=== PATIENT | female | born 1965 | race Caucasian/White ===

== ENCOUNTER 2019-03-08 21:30 | Emergency (ER) | payer OTHER ==
[~2019-03-08] VITALS: Ht 157.5 cm; Wt 63.6 kg
[2019-03-08 21:34] VITALS: Ht 157.5 cm; Wt 63.6 kg
[2019-03-08] MEDS ORDERED: SOD CHLORIDE 0.9% 640 ML IV ONE (23:30)
[2019-03-09] MEDS ORDERED: INSULIN REGULAR, HUMAN 100 UNIT/1 ML 3ML VIAL SC ONE (01:00)
--- NOTE | 2019-03-09 02:43 | ERD ---
ER Documentation Chief Complaint Chief Complaint states high blood sugar at home, c/o dizziness HPI This is a 53-year-old female states that she is been feeling dizzy noticed that her blood sugars were severely elevated at home. Fevers chills nausea vomiting. Denies any focal neurologic complaints. Denies any other current issues. ROS All systems reviewed and are negative except as per history of present illness. Medications Home Meds Unable to Obtain Active Prescriptions or Reported Meds Allergies Allergies: Coded Allergies: No Known Allergy (Unverified , 10/22/14) PMhx/Soc History of Surgery: Yes (Removal of 1 ovary) Anesthesia Reaction: No Hx Neurological Disorder: No Hx Respiratory Disorders: No Hx Cardiac Disorders: Yes (HTN) Hx Psychiatric Problems: No Hx Miscellaneous Medical Probl: Yes (Cancer of right kidney, mass in the neck, gall stones) Hx Alcohol Use: No Hx Substance Use: No Hx Tobacco Use: No Smoking Status: Never smoker Physical Exam Vitals Vital Signs Date Temp Pulse Resp B/P (MAP) Pulse Ox O2 O2 Flow FiO2 Time Delivery Rate 03/08/19 90 17 172/79 98 Room Air 23:11 (110) 03/08/19 97.5 100 18 187/88 100 21:34 (121) Physical Exam Const: No acute distress Head: Atraumatic Eyes: Normal Conjunctiva ENT: Normal External Ears, Nose and Mouth. Neck: Full range of motion. No meningismus. Resp: Clear to auscultation bilaterally Cardio: Regular rate and rhythm, no murmurs Abd: Soft, non tender, non distended. Normal bowel sounds Skin: No petechiae or rashes Back: No midline or flank tenderness Ext: No cyanosis, or edema Neur: Awake and alert Psych: Normal Mood and Affect Result Diagram: 03/08/19231803/08/192318 Results 24 hrs Laboratory Tests Test 03/08/19 21:37 03/08/19 23:12 03/08/19 23:19 03/08/19 23:26 Bedside Glucose 451 mg/dL 391 mg/dL Blood Gas Blood venous Specimen Source Arterial Blood 03/09/2019 12:18 Date Drawn :42 AM Arterial Blood VENOUS LINE Gas Puncture Site Emanuel Test N/A Venous Blood pH 7.374 Venous Blood 48.4 mmHG pCO2 (Temp Corrected) Venous Blood pO2 30.2 mmHG (Temp Corrected) Venous Blood 27.6 mmol/L HCO3 Venous Blood 57.3 mmHG Oxygen Saturation Venous Blood 1.6 mmol/L Base Excess Venous Blood 15.9 g/dl Total Hemoglobin Venous Blood 57.0 % Oxyhemoglobin Venous Blood 0.1 % Methemoglobin Carboxyhemoglobi 0.4 % n Blood Gas 37.0 C Temperature Blood Gas Actual 21 Respiration Rate Blood Gas ROOM AIR Modality FiO2 21.0 % Blood Gas KB Notified Whom Blood Gas 03/09/2019 12:23 Notified Time :38 AM White Blood 11.4 10^3/ul Count Red Blood Count 4.77 10^6/ul Hemoglobin 13.3 g/dl Hematocrit 39.4 % Mean Corpuscular 82.6 fl Volume Mean Corpuscular 27.9 pg Hemoglobin Mean Corpuscular 33.8 g/dl Hemoglobin Alix nt Red Cell 12.5 % Distribution Width Platelet Count 310 10^3/UL Mean Platelet 10.9 fl Volume Immature 0.300 % Granulocytes % Neutrophils % 65.0 % Lymphocytes % 24.1 % Monocytes % 8.0 % Eosinophils % 1.9 % Basophils % 0.7 % Nucleated Red 0.0 /100WBC Blood Cells % Immature 0.040 10^3/ul Granulocytes # Neutrophils # 7.4 10^3/ul Lymphocytes # 2.8 10^3/ul Monocytes # 0.9 10^3/ul Eosinophils # 0.2 10^3/ul Basophils # 0.1 10^3/ul Nucleated Red 0.0 10^3/ul Blood Cells # Urine Color YELLOW Urine Clarity SLIGHTLY CLOUDY Urine pH 6.0 Urine Specific 1.030 Truman Urine Ketones NEGATIVE mg/dL Urine Nitrite NEGATIVE mg/dL Urine Bilirubin NEGATIVE mg/dL Urine NEGATIVE mg/dL Urobilinogen Urine Leukocyte TRACE Mari/ul Esterase Urine 1 /HPF Microscopic RBC Urine 12 /HPF Microscopic WBC Urine Bacteria FEW /HPF Urine Mucus FEW /HPF Urine Hemoglobin NEGATIVE mg/dL Urine Glucose 3+ mg/dL Urine Total NEGATIVE mg/dl Protein Sodium Level 137 mmol/L Potassium Level 4.4 mmol/L Chloride Level 99 mmol/L Carbon Dioxide 28 mmol/L Level Anion Gap 10 Blood Urea 16 mg/dl Nitrogen Creatinine 0.45 mg/dl Est Glomerular > 60 mL/min Filtrat Rate mL/min Glucose Level 407 mg/dl Calcium Level 11.2 mg/dl Phosphorus Level 3.9 mg/dl Magnesium Level 1.8 mg/dl Total Bilirubin 1.0 mg/dl Direct Bilirubin 0.00 mg/dl Indirect 1.0 mg/dl Bilirubin Aspartate Amino 22 IU/L Transf (AST/SGOT ) Alanine 16 IU/L Aminotransferase (ALT/SGPT) Alkaline 170 IU/L Phosphatase Troponin I < 0.012 ng/ml Total Protein 8.3 g/dl Albumin 4.4 g/dl Globulin 3.90 g/dl Albumin/Globulin 1.12 Ratio Test 03/09/19 01:06 03/09/19 02:30 Bedside Glucose 336 mg/dL 277 mg/dL Current Medications Medications Dose Sig/Radha Start Time Status Last (Trade) Ordered Route PRN Stop Time Admin Dose Reason Admin Sodium 640 ml @ ONCE ONCE 03/08/19 DC 03/08/19 Chloride 640 mls/hr IV 23:30 23:34 03/09/19 00:29 Insulin 8 unit ONCE ONCE 03/09/19 DC 03/09/19 Human SC 01:00 01:09 Regular 03/09/19 01:01 (Humulin R) Procedures/MDM Emergency department course: Patient started on diabetic ketoacidosis screen. Found to not be in DKA. Given fluid bolus and subcutaneous insulin. Sugars normalized here in the department. Stable for trial of outpatient management. Advised follow-up with PCP for medication regimen change EKG: Rate/Rhythm: Normal Sinus Rhythm QRS, ST, T-waves: No changes consistent w/ acute ischemia Impression: No evidence of ischemia or arrhythmia Chest X-ray 1V Interpreted by me: Soft Tissue: No acute abnormalities Bones: No acute abnormalities Mediastinum/Cardiac Silhouette/Lungs: No acute abnormalities Departure Diagnosis: Primary Impression: Hyperglycemia Condition: Stable Patient Instructions: Hyperglycemia (High Blood Sugar) NITHYA SIFUENTES March 09, 2019 02:43
[2019-03-09 03:15] VITALS: BP 147/72; PULSE 96; RESP 16
== END 2019-03-09 03:15 | disposition home or self-care (01) ==
LOC: E/R 21:30
DX: R73.9 Hyperglycemia, unspecified (principal); I10 Essential (primary) hypertension; Z85.528 Personal history of other malignant neoplasm of kidney
CPT/HCPCS: 36415; 71045; 80053; 81001; 82803; 82962; 83735; 84100; 84484; 85025; 93005; 96372; J1815; J7030; Z7502

== ENCOUNTER 2019-05-29 17:36 | Emergency (ER) | payer OTHER ==
[~2019-05-29] VITALS: Ht 154.9 cm; Wt 65.4 kg
[~2019-05-29 17:36] MED LIST: CEPH-443 PO; HYDR-4011 PO; MUPI22OI2 TOP; SULF1TAB31 PO
[2019-05-29 17:43] VITALS: Ht 154.9 cm; Wt 65.4 kg
--- NOTE | 2019-05-29 19:18 | ERD ---
ER Documentation Chief Complaint Chief Complaint bilateral big toes inflammation x am with pain HPI 53-year-old female, with history of diabetes, presents with department, complaining of 7 days with progressive worsening of edema and erythema in bilateral toes area. The patient refers decreased sensation due to the diabetes. She denies any recent trauma, no fever or chills. ROS All systems reviewed and are negative except as per history of present illness. Medications Home Meds Active Scripts Hydrocodone/Acetaminophen ([place] 5-325 Tablet) 1 Each Tablet, 1 TAB PO DAILY PRN for PAIN, #7 TAB Prov:LYLE LOCKE MD 05/29/19 Mupirocin* (Bactroban*) 2% -22 Gram Oint...g., 1 APPLIC TOP BID for 7 Days, EA Prov:LYLE LOCKE MD 05/29/19 Sulfamethoxazole/Trimethoprim* (Bactrim Ds* Tablet) 1 Each Tablet, 1 TAB PO BID for 7 Days, #14 TAB Prov:LYLE LOCKE MD 05/29/19 Cephalexin* (Keflex*) 500 Mg Capsule, 500 MG PO BID for 7 Days, CAP Prov:LYLE LOCKE MD 05/29/19 Allergies Allergies: Coded Allergies: No Known Allergy (Unverified , 10/22/14) PMhx/Soc History of Surgery: Yes (Removal of 1 ovary) Anesthesia Reaction: No Hx Neurological Disorder: No Hx Respiratory Disorders: No Hx Cardiac Disorders: Yes (HTN) Hx Psychiatric Problems: No Hx Miscellaneous Medical Probl: Yes (Cancer of right kidney, mass in the neck, gall stones) Hx Alcohol Use: No Hx Substance Use: No Hx Tobacco Use: No FmHx Family History: No diabetes, No coronary disease Physical Exam Vitals Vital Signs Date Temp Pulse Resp B/P (MAP) Pulse Ox O2 O2 Flow FiO2 Time Delivery Rate 05/29/19 98.5 80 16 158/81 98 Room Air 21:34 (106) 05/29/19 98.2 81 18 174/88 97 17:43 (116) Physical Exam Patient alert, oriented, vital signs stable. HEAD: Normocephalic, atraumatic. EYES: PERRLA, EOMI, Sclera and conjunctiva appear normal. NOSE: Clear and patent nostrils. EARS: Canals clear, tympanic membranes WNL. MOUTH: normal lips and tongue, no oral lesions. THROAT: Normal oropharynx, no tonsillar exudates. NECK: Supple, No lymphadenopathy. Full ROM without pain or tenderness. HEART: RRR, no rubs, murmurs, clicks or gallops. LUNGS: Clear to auscultation. ABDOMEN: Soft, non-tender without masses or hepatosplenomegaly. EXTREMITIES: Feet: Bilateral interdigital area of erythema and edema with malodorous and honey crusted discharge BACK: Full ROM, no deformity, normal back exam NEURO: Cranial nerves grossly intact, no motor or sensory deficit SKIN: No rashes, no petechia. Results 24 hrs Current Medications Medications Dose Sig/Radha Start Time Status Last (Trade) Ordered Route PRN Stop Time Admin Dose Reason Admin Cefazolin 50 ml @ ONCE ONCE 05/29/19 DC 05/29/19 Sodium/ 100 mls/hr IVPB 19:30 20:00 Dextrose 05/29/19 19:59 Sodium 1,000 ml @ Q1H ONCE 05/29/19 DC 05/29/19 Chloride 1,000 mls/hr IV 19:30 19:41 05/29/19 20:29 Procedures/MDM Vital signs stable, differential diagnosis include but not limited to: Diabetic ulcer, cellulitis, erysipelas, fungal infection, abscess. Low suspicion for acute systemic infectious process. Physical examination and clinical presentation consistent most likely with interdigital intertrigo without evidence of systemic infection. During the ED course the patient remained stable, no new complaints. Results and clinical impression discussed with the patient who agrees with management. The patient is stable to be treated outpatient and will be discharged home with a Rx for antibiotics and pain medications, some side effects of prescribed medications (headache, rash, nausea, vomiting, diarrhea, drowsiness, habituation, bleeding, hypertension, interactions with other medications) were reviewed. The patient was instructed to follow up with the primary care provider in the next 48h. If symptoms persist, worsen or new symptoms develop, then patient should return to the ED immediately. Instructions explained and given directly by me to the patient and relatives with acknowledgment and demonstrated understanding. Disclaimer: Inadvertent spelling and grammatical errors are likely due to EHR/dictation software use and do not reflect on the overall quality of patient care. Also, please note that the electronic time recorded on this note does not necessarily reflect the actual time of the patient encounter. Departure Diagnosis: Primary Impression: Intertrigo of web of toe Condition: Stable Additional Instructions: Muchas olivia por [facility] para yuan servicio. Esperamos que en yuan visita a la maddy de emergencia yuan problema medico haya sido solucionado y que se sienta mucho mejor. Para estar seguros que yuan mejoria sigue en proceso, le pedimos el favor de hacer shavon radha de seguimiento medico con yuan doctor primario en los proximos 2-4 jackman. Lleve con usted estos documentos y las medicinas recetadas. Si salty sintomas empeoran, NO SE ESPERE, por favor regrese a maddy de emergencia INMEDIATAMENTE. En anita que usted no tenga un mdico de atencin primaria: Llame al mdico o clnica comunitaria de referencia que aparece abajo analia las horas de consultorio para hacer shavon radha para que le vean. CLINICAS: [facility] [phone] [facility] [phone] [address] [address] [facility] [phone] [facility] [phone] [facility] [phone] [id number] [facility] [phone] LYLE SHEARER MD May 29, 2019 19:18
[2019-05-29] MEDS ORDERED: CEFAZOLIN 2 GM/50 ML (PMX) 50 ML IVPB ONE (19:30)
[2019-05-29] MEDS ORDERED: SOD CHLORIDE 0.9% 1,000 ML IV ONE (19:30)
[2019-05-29 21:34] VITALS: BP 158/81; PULSE 80; RESP 16
== END 2019-05-29 21:27 | disposition home or self-care (01) ==
LOC: FTE 17:36
DX: L30.4 Erythema intertrigo (principal); I10 Essential (primary) hypertension; E11.9 Type 2 diabetes mellitus without complications; Z85.528 Personal history of other malignant neoplasm of kidney
CPT/HCPCS: 96374; J0690; J7030; Z7502